=== PATIENT | male | born 1995 | race African-American/Black ===

== ENCOUNTER 2019-06-28 14:33 | Emergency (ER) | payer MEDICAID, SELFPAY ==
[2019-06-28 14:39] VITALS: BP 141/75; PULSE 51; RESP 20; TEMP 36.6; O2SAT 99
--- NOTE | 2019-06-28 15:00 | ED.SKABFB ---
HPI - Skin/Abscess/Foreign Bdy General Chief complaint: Skin/Abscess/Foreign Body Stated complaint: sore in mouth Time Seen by Provider: 06/28/19 14:44 Source: patient Mode of arrival: ambulatory Limitations: no limitations History of Present Illness HPI narrative: This is a 23 year old male that presents to the ER for mouth pain x1 week. Reports he has been trying Orajel and [id number] pain medication with little relief. Reports he called his dentist and was told to come here for further evaluation. Reports pain in the gums on the left lower side. Also reports a right wrist injury 3 days ago. Denies fever, edema, or erythema. Related Data Allergies Allergy/AdvReac Type Severity Reaction Status Date / Time No Known Allergies Allergy Unverified 11/27/15 22:52 Review of Systems Review of Systems: Narrative: CONSTITUTIONAL: Denies fever ENT: Reports gingival pain MUSCULOSKELETAL: Reports joint pain, and myalgia. NEUROLOGIC: Denies numbness All systems reviewed & are unremarkable except as noted in HPI and below PMFSH Past Medical History Medical History (Updated 06/28/19 @ 15:30 by Tracy Xiao PA-C) No active medical problems Social History Social History (Updated 06/28/19 @ 15:27 by Tracy Xiao PA-C) Smoking status: Never smoker Substance use: never Exam Narrative: Exam Narrative: GENERAL: Well-appearing, well-nourished, and in no acute distress. HEAD: Normocephalic, atraumatic. EYES: EOMI. ENT: Mucous membranes moist. Oropharynx without tonsillar hypertrophy exudate or other lesions. Left posterior buccal mucosa mildly irritated. No edema or erythema to suggest a dental abscess NECK: Supple. No adenopathy or masses. RESPIRATORY: Airway patent EXTREMITIES: Normal range of motion. No edema or obvious deformity. SKIN: Warm, dry, no rash. NEURO: No focal deficits. Alert and oriented x3. PSYCH: Normal mood and affect Course Vital Signs Vital signs: Vital Signs Temperature 97.9 F 06/28/19 14:39 Pulse Rate 51 L 06/28/19 14:39 Respiratory Rate 06/28/19 14:39 Blood Pressure 141/75 H 06/28/19 14:39 Pulse Oximetry 99 06/28/19 14:39 Temperature 97.9 F 06/28/19 14:39 Pulse Rate 51 L 06/28/19 14:39 Respiratory Rate 20 06/28/19 14:39 Blood Pressure 141/75 H 06/28/19 14:39 Pulse Oximetry 99 06/28/19 14:39 MDM - Skin/Abscess/Foreign Bdy MDM Narrative Medical decision making narrative: Patient presents to the emergency department for mouth pain. There is mild irritation of his buccal mucosa on the left in the back of the mouth. Does also report some dental pain, but no signs of abscess on exam. Patient will be started on oral antibiotics and is to follow-up with his dentist. Also reports a right wrist injury 3 days ago. Refused image of the wrist. Patient was instructed to follow-up with his primary care doctor for this. Patient is stable and felt appropriate for further outpatient evaluation. He was given warnings to return to the ER Critical Care Time Critical Care Time Critical Care Time: No Discharge Plan Discharge Clinical Impression: Tooth ache, Acute pain of right wrist Patient Disposition: Home, Self-Care Condition: Stable Instructions: Antibiotic Form, Wrist Injury (ED), Toothache (ED) Additional Instructions: Return to the Emergency Department if you experience fever >101, increasing swelling and redness of your tooth, or any other symptoms that are concerning to you Take antibiotic as prescribed. Tylenol or Ibuprofen as needed for pain. You can apply a dab of clove oil to a Qtip and apply to the tooth to help numb the area. Ice to the wrist. Rest. Elevate. Over the counter pain medication as needed Follow up with your dentist and primary care doctor Prescriptions: New amoxicillin-pot clavulanate 875-125 mg tablet 1 tablet PO Q12H 7 Days Qty: 14 RF: 0 Follow-up/Referrals: Dimitris Lyles Jr., MD [Physician] - 1 Week
[2019-06-28] MEDS: KETOROLAC (*BKC) 60 MG/2 ML VIAL IM (15:04)
== END 2019-06-28 15:42 | disposition home or self-care (01) ==
PROVIDERS: Emergency Provider Emergency Medicine
DX: K08.89 Other specified disorders of teeth and supporting structures (principal); M25.531 Pain in right wrist
CPT/HCPCS: 96372; 99283; J1885

== ENCOUNTER 2021-08-23 10:16 | Emergency (ER) | payer OTHER, SELFPAY ==
[2021-08-23 10:26] VITALS: BP 128/66; PULSE 50; RESP 12; TEMP 36.6; O2SAT 100
--- NOTE | 2021-08-23 13:12 | PC.NURSE ---
[employer] Director saw patient walk out. Patient did not stop at intake desk or alert anyone. Patient's name was called twice in waiting room with no response.
== END 2021-08-23 13:33 | disposition left against medical advice (07) ==
LOC: ANHED 13:33
DX: H57.89 Other specified disorders of eye and adnexa (principal)
CPT/HCPCS: 99199